=== PATIENT | female | born 1985 | race Caucasian/White ===

== ENCOUNTER 2016-05-31 04:12 | Emergency (ER) | payer SELFPAY ==
[2016-05-31] MEDS ORDERED: LORazepam TAB(*) 1 MG ONE (04:20)
[2016-05-31] MEDS ORDERED: LORazepam TAB(*) 1 MG PO ONE (04:28)
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
[2016-05-31 04:59] LABS: Hematocrit 38 % (35-47); Hemoglobin 12.9 g/dl (12.0-16.0); Mean Corpuscular HGB Conc 34 g/dl (31-36); Mean Corpuscular Hemoglobin 31 pg (27-31); Mean Corpuscular Volume 90 fL (80-97); Mean Platelet Volume 8 um3 (7.4-10.4); Red Blood Count 4.18 10^6/ul (4.0-5.4); Red Cell Distribution Width 13 % (10.5-15); White Blood Count 12.1 10^3/ul (3.5-10.8)
[2016-05-31 05:01] LABS: Urine Bilirubin Negative (Negative); Urine Glucose Negative (Negative); Urine Nitrite Negative (Negative)
[2016-05-31 05:15] LABS: ALT 14 U/L (7-52); AST 15 U/L (13-39); Albumin 4.5 g/dL (3.2-5.2); Alkaline Phosphatase 42 U/L (34-104); Anion Gap 10 mmol/L (2-11); BUN/Creatinine Ratio 15.5 (8-20); Benzodiazepine Urine Screen None Detected (None Detect); Blood Urea Nitrogen 13 mg/dL (6-24); CO2 Carbon Dioxide 20 mmol/L (22-32); Calcium 8.9 mg/dL (8.6-10.3); Chloride 110 mmol/L (101-111); EGFR African American 101.7 (>60); EGFR Non-African American 79.1 (>60); Globulin 2.8 g/dL (2-4); Glucose 113 mg/dL (70-100); Potassium 3.3 mmol/L (3.5-5.0); Sodium 140 mmol/L (133-145); Total Protein 7.3 g/dL (6.4-8.9)
[2016-05-31] MEDS ORDERED: diPHENhydraMINE IV* 50 MG/ML 1 ml VIAL (BENADRYL) ONE ×2 (05:23→08:40)
[2016-05-31] MEDS ORDERED: LORazepam INJ* 2 MG/ML 1 ML VIAL ONE ×2 (05:23→08:40)
[2016-05-31] MEDS ORDERED: LORazepam INJ* 2 MG/ML 1 ML VIAL IM ONE ×2 (05:27→11:11)
[2016-05-31] MEDS ORDERED: diPHENhydraMINE IV* 50 MG/ML 1 ml VIAL (BENADRYL) IM ONE ×2 (05:27→11:11)
[2016-05-31 05:56] LABS: Acetaminophen < 15 mcg/mL; Alcohol 209 mg/dL (<10); Salicylate < 2.50 mg/dL (<30)
[2016-05-31 06:07] LABS: TSH (Thyroid Stimulating Horm) 3.27 mcIU/mL (0.34-5.60)
--- NOTE | 2016-05-31 08:52 | PN ---
Progress Note - Progress Note Note: Patient has been standing in the door of her room talking loudly about needing to get her phone so she can text her work to let them know she will not be at work today. I went over to ask her to lower her voice and find out what I could do to help, and she let me know her needs. I said I would get her a phone to call work, but she said she needed her phone. I asked if she knew the number to her work, and she said "do you know the number to your work?!". I said I did, but that I would get her phone so she could look up the number. She continued talking loudly across the ED as I walked to get her phone and said "I'm sorry I' m not as good as you because I don't know the number to my work". At that point I asked her to step back into her room so I could close her door, and she refused to get out of the way of the door and stepped further into the main ED. I called for Security and the patient was given ativan and benadryl to avoid further escalation of her behavior. She had been verbally confrontational with most of the staff anytime they had tried to help. 1150: Patient under MH evaluation and was found competent for discharge home with her mother. No services were needed. Patient is in stable condition with a diagnosis of alcohol abuse.
[2016-05-31] MEDS ORDERED: Haloperidol INJ IV/IM* 5 MG/ML AMP IM ONE (09:34)
[2016-05-31 12:01] VITALS: BP 93/48
== END 2016-05-31 14:40 | disposition home or self-care (01) ==
LOC: ED 04:12
DX: F10.129 Alcohol abuse with intoxication, unspecified (principal); R41.82 Altered mental status, unspecified; Z87.891 Personal history of nicotine dependence
CPT/HCPCS: 36415; 80053; 80307; 80320; 80329; 81003; 84443; 84702; 85025; 96374; 96375; 99285; A9270-GY; G0480; J1200; J2060